=== PATIENT | female | born 1945 | race Caucasian/White ===

== ENCOUNTER 2019-04-05 07:50 | Day surgery (SDC) | payer MEDICARE, OTHER ==
[2019-04-02 11:20] LABS: BASOPHILS 0.4 % (0-2); EOSINOPHILS 1.8 % (0-7); HEMATOCRIT 40.9 % (36.0-48.0); HEMOGLOBIN 13.2 g/dL (12-16); IMMATURE GRANULOCYTES 0.1 % (0-5); LYMPHOCYTES 22.1 % (15-50); MCH 27.6 pg (26.0-34.0); MCHC 32.3 g/dL (31.0-37.0); MCV 85.6 fL (80.0-100.0); MEAN PLATELET VOLUME 9.7 fL (7.4-10.4); MONOCYTES 4.6 % (2-11); PLATELET COUNT 362 10x3/uL (130-400); RBC 4.78 10x6/uL (4.00-5.40); RDW 14.7 % (11.5-14.5); WBC 6.8 10x3/uL (4.8-10.8)
[~2019-04-05] VITALS: Ht 160 cm; Wt 91.6 kg
[~2019-04-05 07:50] MED LIST: BAYER CHEWABLE81 MG PO; CALTRATE-600600 MG PO; FISH OIL 1,0001 CA1 PO; NORVASC10 MG PO; PERCOCET 5/3251 TA1 PO
[2019-04-05] MEDS ORDERED: BENADRYL25 MG PO (08:51)
[2019-04-05 09:03] VITALS: BP 121/79; Ht 160 cm; Wt 91.6 kg
--- NOTE | 2019-04-05 17:40 | NUR ---
1610 IV REMOVED AND PRESSURE HELD. CAHT INTACT. DRESSING APPLIED. VOIDED X1 1615 INSTRUCTIONS GIVEN AND PT D/C HOME
--- NOTE | 2019-04-07 16:35 | OP ---
PATIENT NAME: KARLOS ALANIS MEDICAL RECORD: [id number] :43 LOCATION:D.OPS ADMISSION DATE: SURGEON: NATHAN BERNARD MD DATE OF OPERATION: 04/05/2019 PREOPERATIVE DIAGNOSIS: Postmenopausal bleeding. POSTOPERATIVE DIAGNOSIS: Postmenopausal bleeding. PROCEDURE: 1. Hysteroscopy. 2. Dilation with curettage. SURGEON: Nathan Bernard MD PRENATAL TEACHER: Yemi Wells. ANESTHESIA: General. FINDINGS: Atrophic lining of the endometrium. Both ostia are identified. The uterus prolapses to within a centimeter of the hymen. The vaginal vault is otherwise unremarkable. SPECIMENS REMOVED: Endometrial curettings. SPECIMEN DISPOSITION: Pathology. ESTIMATED BLOOD LOSS: Less than or equal to 50 cc. ESTIMATED BLOOD LOSS: 600 cc lactated Ringer's. URINE OUTPUT: Quantity sufficient void prior to this procedure. COMPLICATIONS: None. DRAINS: None. INDICATIONS: The patient is a 73-year-old female with postmenopausal bleeding and an ultrasound showing endometrial stripe greater than 0.5 cm. The patient was consented for dilation and curettage with hysteroscopy. DESCRIPTION OF PROCEDURE: After informed consents were ensured, the patient was taken to the operating room where anesthetic was obtained. The patient was placed in Yellofin stirrups and prepped and draped. After timeout, the patient had a speculum placed in the vagina. The cervix was identified, grasped with a single tooth tenaculum and placed on gentle traction. The uterus was now sounded to approximately 7-8 cm. The cervix was now dilated to accommodate a 4 mm hysteroscope. This was passed into the uterine cavity under direct visualization with the above findings. After conclusion of the hysteroscopy, the cervix was continued to be dilated to accommodate a #2 curette. Curettage was now performed until good cry was obtained throughout. The tissue was sent for analysis. The sponge, lap and needle count was correct times 2. The procedure was discontinued. The single tooth tenaculum was released and ring forceps applied over the puncture sites for hemostasis. OPERATIVE REPORT [id number] KARLOS ALANIS TRANSINT:[id number] Voice Confirmation ID: [id number] DOCUMENT ID: [id number] NATHAN BERNARD MD at 1635 CC: [id number] DICTATION DATE: 04/05/19 1411 [facility] IRONER: 04/06/[address] [facility] [place] 04/05/19 [facility] [address] [place] [address]
== END 2019-04-05 16:15 | disposition home or self-care (01) ==
LOC: D.OPS 07:50 → D.PAN 10:45 → D.OPS 10:45
PROVIDERS: ATTEND Obstetrics & Gynecology
DX: N95.0 Postmenopausal bleeding (principal)